=== PATIENT | male | born 1995 | race African-American/Black ===

== ENCOUNTER 2017-06-23 14:19 | Emergency (ER) | payer MEDICAID ==
[~2017-06-23] VITALS: Ht 172.7 cm; Wt 70.0 kg
[2017-06-23] MEDS ORDERED: KETOROLAC 60MG/2ML VIAL IM ONE (17:45)
[2017-06-23 18:08] VITALS: BP 108/57
== END 2017-06-23 19:21 | disposition home or self-care (01) ==
LOC: ER 14:29
DX: M54.5 Low back pain (principal)
CPT/HCPCS: 72100; 96372; 99284; J1885

== ENCOUNTER 2018-05-11 14:22 | Emergency (ER) | payer MEDICAID ==
[~2018-05-11] VITALS: Ht 188 cm; Wt 75.0 kg
[2018-05-11] MEDS ORDERED: HYDROCODONE/ACETAMINOPHEN 5/325MG TABLET PO ONE (15:30)
[2018-05-11 15:37] VITALS: BP 130/75
== END 2018-05-11 18:07 | disposition home or self-care (01) ==
LOC: ER 14:22
DX: S02.2XXA Fracture of nasal bones, initial encounter for closed fracture (principal); S00.83XA Contusion of other part of head, initial encounter; Y08.89XA Assault by other specified means, initial encounter; Y93.89 Activity, other specified; Y92.89 Other specified places as the place of occurrence of the external cause; Y99.8 Other external cause status
CPT/HCPCS: 70486; 99284

== ENCOUNTER 2022-04-21 21:32 | Emergency (ER) | payer MEDICAID ==
[~2022-04-21] VITALS: Ht 182.9 cm; Wt 68.3 kg
[2022-04-21 22:05] VITALS: BP 135/62
== END 2022-04-22 01:25 | disposition left against medical advice (07) ==
LOC: ER 21:32
DX: Z53.21 Procedure and treatment not carried out due to patient leaving prior to being seen by health care provider (principal)